=== PATIENT | female | born 1945 | race Native Hawaiian/Other Pacific Islander ===

== ENCOUNTER 2018-11-27 06:51 | Day surgery (SDC) | payer MEDICARE ==
[2018-11-16 10:39] VITALS: BMI 26.9
[2018-11-27] MEDS ORDERED: Lactated Ringer's 1,000 ML IV ONE ×2 (07:30→12:30)
[2018-11-27] MEDS ORDERED: Lidocaine 2% MPF (5 ml) Inj ONE (09:16)
[2018-11-27] MEDS ORDERED: Propofol 10 mg/ml Inj (20 ML) ONE (09:16)
--- NOTE | 2018-11-27 09:17 | CARD ---
APPROVED REPORT Date of service: 11/27/2018 EKG Measurement Heart [id number] <Conclusion> Normal sinus rhythm Normal ECG
[2018-11-27] MEDS ORDERED: Sevoflurane - Inhalation Anesthetic Liq (250 ml) ONE (09:18)
[2018-11-27] MEDS ORDERED: ePHEDrine 50 mg/ml Inj ONE (10:01)
[2018-11-27] MEDS ORDERED: Dexamethasone 4 mg/1 ml IVP PRN (10:32)
[2018-11-27] MEDS ORDERED: HYDROmorphone 0.5 mg/0.5 ml ISec IVP PRN (10:32)
[2018-11-27 13:02] VITALS: RESP 20; O2SAT 98
--- NOTE | 2018-11-27 13:23 | RAD ---
Date of service: 11/27/2018 HISTORY: PRE-OP COMPARISON: 04/02/2011. TECHNIQUE: Chest PA and lateral views FINDINGS: LUNGS: No active pulmonary disease. PLEURA: No significant pleural effusion identified. No pneumothorax apparent. CARDIOVASCULAR: Atherosclerotic calcifications identified primarily aortic arch. No radiographic findings to suggest acute or significant cardiovascular disease. OSSEOUS STRUCTURES: No significant abnormalities. VISUALIZED UPPER ABDOMEN: Normal. OTHER FINDINGS: None. IMPRESSION: No active disease. No significant interval change compared to the prior examination(s).
[2018-11-27 14:04] VITALS: BP 124/79; PULSE 84; TEMP 97.8
--- NOTE | 2018-12-04 23:35 | OP ---
PROCEDURE DATE: 11/27/2018 PREOPERATIVE DIAGNOSIS: Postmenopausal bleeding. POSTOPERATIVE DIAGNOSIS: Postmenopausal bleeding, pending pathology. SURGEON: Lucas Guerrero MD ANESTHESIOLOGIST: Dr. Goran Schaffer. ANESTHESIA: General anesthesia. PROCEDURE: Hysteroscopy with MyoSure and dilatation and curettage. FINDINGS: Possibly polyp and hyperplastic tissue. ESTIMATED BLOOD LOSS: Minimal. DESCRIPTION OF PROCEDURE: With the patient in dorsal lithotomy position under general anesthesia, the patient was prepped and draped in the usual sterile manner. A weighted speculum was placed in the posterior vagina. The cervix was grasped anteriorly and dilated. Once this was done, the hysteroscope was put into place, and the possible polyp and hypoplastic tissues were visualized. MyoSure was done removing the tissue and polypoid looking lesions. After this was done, the D and C was also done obtaining scant amount of tissue. Blood loss was minimal. The patient tolerated the procedure well and was in satisfactory condition on her way to recovery room. Lucas Guerrero MD
== END 2018-11-27 14:05 | disposition home or self-care (01) ==
LOC: H.OPSURG 06:51
PROVIDERS: ATTEND Specialist
DX: N95.0 Postmenopausal bleeding (principal); J45.909 Unspecified asthma, uncomplicated; E11.9 Type 2 diabetes mellitus without complications; E78.5 Hyperlipidemia, unspecified; I10 Essential (primary) hypertension
CPT/HCPCS: 58558; 71046; 82948; 88305; 93005; J1885; J2405; J2704; J2765; J3010; J7030; J7120